=== PATIENT | male | born 1935 | race Caucasian/White ===

== ENCOUNTER → 2017-03-26 | Outpatient (CLI) | payer MEDICARE, OTHER ==
[~2017-03-26] MED LIST: ALB6.7R INH; ALBU2.5V36 INH; ALBUDR INH; ALL300 PO; ALLO-119 PO; ALLO100T70 PO; ALLOPURINOL; AMOX-559 PO; ASP325 PO; ASPI-1471 PO; ASPI-757 PO; ASPI81TA94 PO; ASTELIN; AUG875 PO; CALC1TAB32 PO; CEP500 PO; CHOLESTEROL MED; COLE1TAB6 PO; DARI15TA5 PO; DULERAPT INH; ESOM40CA42 PO; EZE10 PO; EZET10TA41 PO; HYOS-50 SL; IBU600 PO; IMIPRAM PO; LEV500P IV; METO25TA23 PO; METO25TA91 PO; MON10 PO; NIAC100040 PO; PANT40SU3 PO; PANT40TA65 PO; PER PO; PNEU0.5D3 IM; ROS10 PO; SINGULAIR; TAM4 PO; TOLT4CAP13 PO; ZOL5 PO; [UNRECOGNIZED DRUG - CODE] IH; [UNRECOGNIZED DRUG - CODE] PO; [UNRECOGNIZED DRUG - CODE] PO
[2017-03-26 12:09] LABS: PLATELET COUNT, AUTOMATED 220 K/uL (150-450)
== END ==
LOC: LAB 11:44
PROVIDERS: ATTEND Internal Medicine
DX: I10 Essential (primary) hypertension (principal); I25.10 Atherosclerotic heart disease of native coronary artery without angina pectoris; E78.5 Hyperlipidemia, unspecified; C61 Malignant neoplasm of prostate
CPT/HCPCS: 36415; 81001; 82040; 82247; 82310; 82374; 82435; 82565; 82947; 84075; 84132; 84153; 84155; 84295; 84443; 84450; 84460; 84520; 84550; 85025

== ENCOUNTER 2017-11-01 09:39 | Inpatient (IN) | payer MEDICARE, OTHER ==
[2017-11-01] MEDS ORDERED: AMOX-559 PO (09:46)
--- NOTE | 2017-11-01 09:47 | ER Report ---
History and Physical Time Seen By : 09:47 HPI/ROS CHIEF COMPLAINT: worsening dog bite infection HISTORY OF PRESENT ILLNESS: This is an 82 year old male. He had a dog bite 2 days ago. Started on Augmentin. Despite this, he has had worsening pain and redness and swelling. He presented to urgent care yesterday and had a dose of IV Ceftriaxone. Despite this, swelling and redness have worsened. This is on the dorsum of the hand. Family reports some purulent drainage. Redness now further into hand and onto the fingers and extending to distal forearm now with some wrapping around to ventral wrist area as well. Pain worsens with movement of the hand and wrist. REVIEW OF SYSTEMS: Constitutional: No fever or chills. Cardiovascular: No chest pain. Respiratory: No cough. No shortness of breath. Gastrointestinal: No abdominal pain. No nausea or vomiting. Musculoskeletal: No other musculoskeletal pain. Skin: As above. Neurological: No numbness. No weakness. Allergies: Coded Allergies: Ywebqkq-Ljr-Abo Reductase Inhibitor (Verified Allergy, Mild, 11/01/17) bacitracin (Verified Allergy, Unknown, 11/01/17) ciprofloxacin (Verified Allergy, Unknown, RASH, 11/01/17) iodine (Verified Allergy, Unknown, 11/01/17) neomycin (Verified Allergy, Unknown, 11/01/17) polymyxin B (Verified Allergy, Unknown, 11/01/17) Home Meds Active Scripts Allopurinol (ZYLOPRIM) 300 Mg Tablet, 300 MG PO QDAY, #90 TAB 4 Refills Prov:JOANNA PACK MD 03/28/17 Ezetimibe (ZETIA) 10 Mg Tablet, 10 MG PO QDAY, #90 TAB 4 Refills Prov:JOANNA PACK MD 03/26/17 Metoprolol Succinate (TOPROL XL) 25 Mg Tab.er.24h, 1 TAB PO QDAY, #90 TAB 4 Refills Prov:JOANNA PACK MD 03/26/17 Pantoprazole Sodium (PANTOPRAZOLE SODIUM) 40 Mg Tablet.dr, 40 MG PO QDAY, #90 TAB.SR 4 Refills Prov:JOANNA PACK MD 03/26/17 Rosuvastatin Calcium (CRESTOR) 10 Mg Tab, 10 MG PO QDAY, #90 TAB 4 Refills Prov:JOANNA PACK MD 03/26/17 Reported Medications Amoxicillin/Pot Clav 875-125 Mg Tab (AUGMENTIN 875-125 TABLET) 1 Each Tablet, 1 TAB PO Q12H, TAB 11/01/17 Aspirin (ASPIRIN) 81 Mg Tab.chew, 81 MG PO QDAY, TAB.CHEW 03/26/17 Discontinued Reported Medications Calcium Carb & Cit/Vitamin D3 (CALCIUM + D3 ER TABLET) Unknown Strength Tablet.er, PO DAILY 10/16/16 Reviewed Nurses Notes: Yes Hx Smoking: Yes Smoking Status: Former Smoker Exposure to Second Hand Smoke?: No Hx Alcohol Use: Yes Constitutional Vital Sign - Last 24 Hours 11/01/17 11/01/17 11/01/17 11/01/17 09:44 10:00 10:31 11:00 Temp 97.5 Pulse 95 94 Resp 18 B/P (MAP) 149/88 138/82 (100) 122/80 (94) 135/90 (105) Pulse Ox 93 89 O2 Delivery Room Air 11/01/17 11:30 B/P (MAP) 144/86 (105) Physical Exam General Appearance: Alert, no acute distress. Respiratory: Chest is non tender, lungs are clear to auscultation. Cardiac: regular rate and rhythm Musculoskeletal: Extremities have full range of motion, but tender with moving hand/wrist/fingers. No deformities, but has swelling. Skin: Redness and warmth. No purulent drainage. DIFFERENTIAL DIAGNOSIS: After history and physical exam differential diagnosis was considered for worsening cellulitis of the left hand from dog bite despite oral Augmenting and addition of a dose of Rocephin yesterday. Medical Decision Making Data Points Result Diagram: 11/01/17 1020 11/01/17 1020 Laboratory Hematology Test 11/01/17 10:20 Red Blood Count 4.67 M/uL (4.00-5.60) Mean Corpuscular Volume 102.0 fL (80.0-96.0) Mean Corpuscular Hemoglobin 35.0 pg (26.0-33.0) Mean Corpuscular Hemoglobin Concent 34.3 g/dL (32.0-36.0) Red Cell Distribution Width 13.9 % (11.5-14.5) Mean Platelet Volume 9.0 fL (7.2-11.1) Neutrophils (%) (Auto) 73.6 % (39.4-72.5) Lymphocytes (%) (Auto) 18.6 % (17.6-49.6) Monocytes (%) (Auto) 6.5 % (4.1-12.4) Eosinophils (%) (Auto) 0.3 % (0.4-6.7) Basophils (%) (Auto) 1.0 % (0.3-1.4) Nucleated RBC Relative Count (auto) 0.0 /100WBC Neutrophils # (Auto) 6.4 K/uL (2.0-7.4) Lymphocytes # (Auto) 1.6 K/uL (1.3-3.6) Monocytes # (Auto) 0.6 K/uL (0.3-1.0) Eosinophils # (Auto) 0.0 K/uL (0.0-0.5) Basophils # (Auto) 0.1 K/uL (0.0-0.1) Nucleated RBC Absolute Count (auto) 0.00 K/uL Erythrocyte Sedimentation Rate 25 mm/HOUR (0-20) Sodium Level 137 mmol/L (137-145) Potassium Level 4.0 mmol/L (3.5-5.0) Chloride Level 104 mmol/L (98-107) Carbon Dioxide Level 25 mmol/L (22-30) Blood Urea Nitrogen 12 mg/dl (9-21) Creatinine 0.70 mg/dl (0.66-1.25) Glomerular Filtration Rate Calc > 60.0 Random Glucose 127 mg/dl (75-110) Calcium Level 9.2 mg/dl (8.4-10.2) Total Bilirubin 1.0 mg/dl (0.2-1.3) Aspartate Amino Transf (AST/SGOT) 22 U/L (0-35) Alanine Aminotransferase (ALT/SGPT) 27 U/L (0-56) Alkaline Phosphatase 38 U/L (0-126) C-Reactive Protein 4.4 mg/dl (<1.0) Total Protein 7.3 g/dl (6.3-8.2) Albumin 4.2 g/dl (3.5-5.0) Chemistry Test 11/01/17 10:20 White Blood Count 8.7 k/uL (4.5-11.0) Red Blood Count 4.67 M/uL (4.00-5.60) Hemoglobin 16.3 g/dL (14.0-18.0) Hematocrit 47.6 % (42.0-52.0) Mean Corpuscular Volume 102.0 fL (80.0-96.0) Mean Corpuscular Hemoglobin 35.0 pg (26.0-33.0) Mean Corpuscular Hemoglobin Concent 34.3 g/dL (32.0-36.0) Red Cell Distribution Width 13.9 % (11.5-14.5) Platelet Count 177 K/uL (150-450) Mean Platelet Volume 9.0 fL (7.2-11.1) Neutrophils (%) (Auto) 73.6 % (39.4-72.5) Lymphocytes (%) (Auto) 18.6 % (17.6-49.6) Monocytes (%) (Auto) 6.5 % (4.1-12.4) Eosinophils (%) (Auto) 0.3 % (0.4-6.7) Basophils (%) (Auto) 1.0 % (0.3-1.4) Nucleated RBC Relative Count (auto) 0.0 /100WBC Neutrophils # (Auto) 6.4 K/uL (2.0-7.4) Lymphocytes # (Auto) 1.6 K/uL (1.3-3.6) Monocytes # (Auto) 0.6 K/uL (0.3-1.0) Eosinophils # (Auto) 0.0 K/uL (0.0-0.5) Basophils # (Auto) 0.1 K/uL (0.0-0.1) Nucleated RBC Absolute Count (auto) 0.00 K/uL Erythrocyte Sedimentation Rate 25 mm/HOUR (0-20) Glomerular Filtration Rate Calc > 60.0 Calcium Level 9.2 mg/dl (8.4-10.2) Total Bilirubin 1.0 mg/dl (0.2-1.3) Aspartate Amino Transf (AST/SGOT) 22 U/L (0-35) Alanine Aminotransferase (ALT/SGPT) 27 U/L (0-56) Alkaline Phosphatase 38 U/L (0-126) C-Reactive Protein 4.4 mg/dl (<1.0) Total Protein 7.3 g/dl (6.3-8.2) Albumin 4.2 g/dl (3.5-5.0) ED Course/Re-evaluation Clinical Indication for ER IV: IV Access ED Course Discussed with Dr. Caraballo. White count negative, but ESR and CRP elevated. Will start Zosyn and admit to medical for IV antibiotics. Decision to Disposition Date: Nov 01, 2017 Decision to Disposition Time: 11:24 Depart Departure Latest Vital Signs Vital Signs Date Time Temp Pulse Resp B/P (MAP) Pulse Ox O2 Delivery O2 Flow Rate FiO2 11/01/17 11:30 144/86 (105) 11/01/17 10:00 94 89 11/01/17 09:44 97.5 18 Room Air Impression: Primary Impression: Cellulitis Additional Impression: Dog bite of hand Condition: Condition Unchanged Disposition: Admitted from ER Problem Qualifiers Primary Impression: Cellulitis Site of cellulitis: extremity Site of cellulitis of extremity: upper extremity Laterality: left Qualified Codes: L03.114 - Cellulitis of left upper limb Additional Impression: Dog bite of hand Encounter type: initial encounter Laterality: left Qualified Codes: S6 1.452A - Open bite of left hand, initial encounter; W54.0XXA - Bitten by dog, initial encounter FREDDIE TOLLIVER MD Nov 01, 2017 09:47
[2017-11-01 10:47] LABS: PLATELET COUNT, AUTOMATED 177 K/uL (150-450)
[2017-11-01] MEDS ORDERED: PIPERACILLIN/TAZO*3.375GM VIAL 3.375 GM in NS(*) 0.9% 100 ML ADDVANT BAG 100 ML IVPB ONE (11:50)
[2017-11-01 12:08] VITALS: BP 125/92
[2017-11-01] MEDS ORDERED: ACETAMINOPHEN 500 MG TAB PO PRN (12:45)
[2017-11-01] MEDS ORDERED: INFLUENZA VIRUS VAC 0.5 ML SYR IM ONLY ONE (12:45)
--- NOTE | 2017-11-01 12:54 | History & Physical ---
History of Present Illness Chief Complaint Hand pain and swelling History of Present Illness This patient presented to the emergency room complaining of pain and swelling in the left hand. His symptoms started after a dog bite several days ago. He has been on Augmentin, but not improving. History Problems: (1) Benign hypertension (2) Personal history of pulmonary embolism (3) CAD (coronary artery disease) (4) Left bundle branch block Status: Chronic (5) Hyperlipidemia (6) Prostate cancer (7) Pacemaker Home Meds Active Scripts Allopurinol (ZYLOPRIM) 300 Mg Tablet, 300 MG PO QDAY, #90 TAB 4 Refills Prov:JOANNA PACK MD 03/28/17 Ezetimibe (ZETIA) 10 Mg Tablet, 10 MG PO QDAY, #90 TAB 4 Refills Prov:JOANNA PACK MD 03/26/17 Metoprolol Succinate (TOPROL XL) 25 Mg Tab.er.24h, 1 TAB PO QDAY, #90 TAB 4 Refills Prov:JOANNA PACK MD 03/26/17 Pantoprazole Sodium (PANTOPRAZOLE SODIUM) 40 Mg Tablet.dr, 40 MG PO QDAY, #90 TAB.SR 4 Refills Prov:JOANNA PACK MD 03/26/17 Rosuvastatin Calcium (CRESTOR) 10 Mg Tab, 10 MG PO QDAY, #90 TAB 4 Refills Prov:JOANNA PACK MD 03/26/17 Reported Medications Amoxicillin/Pot Clav 875-125 Mg Tab (AUGMENTIN 875-125 TABLET) 1 Each Tablet, 1 TAB PO Q12H, TAB 11/01/17 Aspirin (ASPIRIN) 81 Mg Tab.chew, 81 MG PO QDAY, TAB.CHEW 03/26/17 Discontinued Reported Medications Calcium Carb & Cit/Vitamin D3 (CALCIUM + D3 ER TABLET) Unknown Strength Tablet.er, PO DAILY 10/16/16 Allergies: Coded Allergies: Tbijjww-Dog-Tjm Reductase Inhibitor (Verified Allergy, Mild, 11/01/17) bacitracin (Verified Allergy, Unknown, 11/01/17) ciprofloxacin (Verified Allergy, Unknown, RASH, 11/01/17) iodine (Verified Allergy, Unknown, 11/01/17) neomycin (Verified Allergy, Unknown, 11/01/17) polymyxin B (Verified Allergy, Unknown, 11/01/17) Hx Smoking: Yes Smoking Status: Former Smoker Exposure to Second Hand Smoke?: No Caffeine Intake: Tea, Soda Caffeine/Cups Per Day: 4 Hx Alcohol Use: Yes Social Drug Use: Never Review of Systems All Systems Reviewed/Normal: Yes, Except as Noted Musculoskeletal: Pain Exam Vital Signs Vital Signs Date Time Temp Pulse Resp B/P (MAP) Pulse Ox O2 Delivery O2 Flow Rate FiO2 11/01/17 12:08 98.1 80 16 125/92 (103) 92 Room Air Neuro: No Gross deficits Eyes: PERRLA Cardiovascular: Regular Rate and Rhythm Respiratory: Clear to Auscultation GI: Abd Soft and Non-Tender Integumentary: Other (Left hand with obvious swelling. Erythema around dorsum of hand. Bite wound on dorsum of hand.) Medical Decision Making Data Points Result Diagram: 11/01/17 1020 11/01/17 1020 Item Value Date Time C-Reactive Protein 4.4 mg/dl H 11/01/17 1020 Assessment and Plan Problems: (1) Cellulitis Status: Acute Assessment & Plan: He has been on oral Augmentin with no improvement. We have placed him on empiric treatment with Zosyn. A repeat CRP has been ordered for the morning. (2) Dog bite of hand Status: Acute Assessment & Plan: As above. (3) CAD (coronary artery disease) Assessment & Plan: He is on chronic treatment with aspirin and Crestor. (4) Benign hypertension Assessment & Plan: He is on chronic treatment with metoprolol. Venous Thromboembolism Antithrombotics Is Pt On Any Antithrombotics?: Yes Exam Sepsis Risk: No Definite Risk Problem Qualifiers (1) Cellulitis: Site of cellulitis: extremity Site of cellulitis of extremity: upper extremity Laterality: left Qualified Codes: L03.114 - Cellulitis of left upper limb (2) Dog bite of hand: Encounter type: initial encounter Laterality: left Qualified Codes: S61.452A - Open bite of left hand, initial encounter; W54.0XXA - Bitten by dog, initial encounter MOHSENVIKA MARTIN DO Nov 01, 2017 12:54
[2017-11-01] MEDS ORDERED: NS(*) 0.9% 250 ML BAG 250 ML ONE (18:18)
[2017-11-01] MEDS: PIPERACILLIN/TAZO*3.375GM VIAL 3.375 GM in NS(*) 0.9% 100 ML ADDVANT BAG 100 ML IVPB SCH (18:18)
[2017-11-01 20:11] VITALS: BP 136/87
[2017-11-01] MEDS ORDERED: ZOLPIDEM TARTRATE 10 MG TAB PO PRN (21:00)
[2017-11-02] MEDS: PIPERACILLIN/TAZO*3.375GM VIAL 3.375 GM in NS(*) 0.9% 100 ML ADDVANT BAG 100 ML IVPB SCH ×3 (00:19→11:21)
[2017-11-02 05:49] VITALS: BP 124/83
[2017-11-02 06:47] VITALS: BP 123/77
[2017-11-02] MEDS ORDERED: ASPIRIN 81 MG ENTERIC COATED PO SCH (09:00)
[2017-11-02] MEDS ORDERED: PANTOPRAZOLE SOD 40 MG TABEC PO SCH (09:00)
[2017-11-02] MEDS ORDERED: METOPROLOL SUCC XL 25 MG TABCR PO SCH (09:00)
[2017-11-02] MEDS ORDERED: ALLOPURINOL 300 MG TAB PO SCH (09:00)
[2017-11-02] MEDS ORDERED: ENOXAPARIN 40 MG/0.4ML SYR SC SCH (09:00)
--- NOTE | 2017-11-02 11:03 | Hospitalist Depart ---
Discharge Summary Reason for Hosp/Final Diag: (1) Cellulitis Status: Acute Hospital Course & Plan: He has been on oral Augmentin with no improvement, believe infection slow to respond to PO medication, not failure of therapy. We placed him on empiric treatment with Zosyn, rapidly improved. A repeat CRP was decreased. With infection under control after IV Abx will d/c to finish therapy with PO Augmentin. Recommend follow up with PCP this week. If not improved would image to evaluate for retained foreign body, as no imaging was obtained at urgent care. (2) Dog bite of hand Status: Acute Hospital Course & Plan: As above. (3) CAD (coronary artery disease) Hospital Course & Plan: He is on chronic treatment with aspirin and Crestor. (4) Benign hypertension Hospital Course & Plan: He is on chronic treatment with metoprolol. Departure Weight (Pounds): 174 Weight (Ounces): 8.0 Result Diagram: 11/01/17 1020 11/01/17 1020 Condition: Improved Discharge: Home, Self Care Discharge Instructions Home Meds Active Scripts Allopurinol (ZYLOPRIM) 300 Mg Tablet, 300 MG PO QDAY, #90 TAB 4 Refills Prov:JOANNA PACK MD 03/28/17 Ezetimibe (ZETIA) 10 Mg Tablet, 10 MG PO QDAY, #90 TAB 4 Refills Prov:JOANNA PACK MD 03/26/17 Metoprolol Succinate (TOPROL XL) 25 Mg Tab.er.24h, 1 TAB PO QDAY, #90 TAB 4 Refills Prov:JOANNA PACK MD 03/26/17 Pantoprazole Sodium (PANTOPRAZOLE SODIUM) 40 Mg Tablet.dr, 40 MG PO QDAY, #90 TAB.SR 4 Refills Prov:JOANNA PACK MD 03/26/17 Rosuvastatin Calcium (CRESTOR) 10 Mg Tab, 10 MG PO QDAY, #90 TAB 4 Refills Prov:JOANNA PACK MD 03/26/17 Reported Medications Amoxicillin/Pot Clav 875-125 Mg Tab (AUGMENTIN 875-125 TABLET) 1 Each Tablet, 1 TAB PO Q12H, TAB 11/01/17 Aspirin (ASPIRIN) 81 Mg Tab.chew, 81 MG PO QDAY, TAB.CHEW 1/24/18 Discontinued Reported Medications Calcium Carb & Cit/Vitamin D3 (CALCIUM + D3 ER TABLET) Unknown Strength Tablet.er, PO DAILY 10/16/16 Diet: Regular Copies to: JOANNA PACK MD ; Venous Thromboembolism Antithrombotics Is Pt On Any Antithrombotics?: Yes Problem Qualifiers (1) Cellulitis: Site of cellulitis: extremity Site of cellulitis of extremity: upper extremity Laterality: left Qualified Codes: L03.114 - Cellulitis of left upper limb (2) Dog bite of hand: Encounter type: initial encounter Laterality: left Qualified Codes: S61.452A - Open bite of left hand, initial encounter; W54.0XXA - Bitten by dog, initial encounter ANASTASIA RODRIGUEZ DO Nov 02, 2017 11:03
== END 2017-11-02 12:58 | disposition home or self-care (01) | DRG 603 ==
LOC: ER 09:46 → MED 11:41
PROVIDERS: ADMIT Family Medicine; ATTEND Family Medicine
DX: L03.114 Cellulitis of left upper limb (principal); I25.10 Atherosclerotic heart disease of native coronary artery without angina pectoris; I10 Essential (primary) hypertension; I44.7 Left bundle-branch block, unspecified; Z95.0 Presence of cardiac pacemaker; Z86.711 Personal history of pulmonary embolism; E78.5 Hyperlipidemia, unspecified; W54.0XXA Bitten by dog, initial encounter; Z88.1 Allergy status to other antibiotic agents; Z88.8 Allergy status to other drugs, medicaments and biological substances; Z87.891 Personal history of nicotine dependence; Z85.46 Personal history of malignant neoplasm of prostate
CPT/HCPCS: 36415; 82040; 82247; 82310; 82374; 82435; 82565; 82947; 84075; 84132; 84155; 84295; 84450; 84460; 84520; 85025; 85651; 86140; 87040; 96374; 99284; J1650; J2543; J3490; J7050

== ENCOUNTER → 2017-11-06 | Outpatient (CLI) | payer MEDICARE, OTHER ==
[2017-11-06 11:56] LABS: PLATELET COUNT, AUTOMATED 231 K/uL (150-450)
--- NOTE | 2017-11-06 12:58 | RADIOLOGY IMAGING REPORT ---
FACILITY: [facility] PATIENT NAME: Jasmeet Kruger : 1935 MR: [id number] V: [id number] EXAM DATE: ORDERING PHYSICIAN: JOANNA PACK TECHNOLOGIST: Location: [facility] Patient: Jasmeet Kruger : 1935 Visit/Account:[id number] Date of Sevice: 11/06/2017 Technique: HAND COMPLETE LEFT HISTORY: CELLULITIS Comparison studies: None FINDINGS: There is no acute fracture. No cortical destructive process. Degenerative changes are not ed within the hand most conspicuous at the first CMC joint and the first interphalangeal joint. Ther e is a small ossific density anterior to the carpal row which may represent a loose body or sequela o f previous injury. Soft tissue swelling surrounds the hand. IMPRESSION: 1. No acute osseous process. 2. Degenerative changes as described above. Report Dictated By: Nigel France DO at 11/06/2017 12:49 PM Report E-Signed By: Nigel France DO at 11/06/2017 12:54 PM WSN:[id number]
== END ==
LOC: LAB 11:37
PROVIDERS: ATTEND Internal Medicine
DX: M25.442 Effusion, left hand (principal); M19.042 Primary osteoarthritis, left hand; L03.90 Cellulitis, unspecified
CPT/HCPCS: 36415; 82040; 82247; 82310; 82374; 82435; 82565; 82947; 84075; 84132; 84155; 84295; 84450; 84460; 84520; 85025; 85651; 86140

== ENCOUNTER → 2017-12-08 | Outpatient (CLI) | payer MEDICARE, OTHER ==
[2017-12-08 09:14] LABS: LDL CHOLESTEROL 71 mg/dl
== END ==
LOC: LAB 08:21
PROVIDERS: ATTEND Internal Medicine
DX: I49.8 Other specified cardiac arrhythmias (principal); Z95.0 Presence of cardiac pacemaker; I47.2 Ventricular tachycardia; I44.1 Atrioventricular block, second degree; I25.5 Ischemic cardiomyopathy; E78.00 Pure hypercholesterolemia, unspecified; I25.119 Atherosclerotic heart disease of native coronary artery with unspecified angina pectoris
CPT/HCPCS: 36415; 82040; 82247; 82310; 82374; 82435; 82465; 82565; 82947; 83718; 84075; 84132; 84155; 84295; 84450; 84460; 84478; 84520

== ENCOUNTER 2018-10-14 00:46 | Emergency (ER) | payer MEDICARE, OTHER ==
[~2018-10-14 00:46] MED LIST changes: -ROS10 PO; +ROSU10TA PO
--- NOTE | 2018-10-14 00:56 | ER Report ---
History and Physical Time Seen By MD: 00:51 Hx. of Stated Complaint: PATIENT STATES HAVING TIREDNESS, DIZZINESS, PAIN IN CHEST, "FEELS LIKE INDESTION". PATIENT FEELING SHORT OF BREATH. HPI/ROS CHIEF COMPLAINT: chest pain HISTORY OF PRESENT ILLNESS: This is an 83 year old male. He has had some chest pressure tonight. Feels like indigestion. Has a history of CAD, OH and stents as well as pacemaker and cardiomyopathy. Had [place] today and was feeling a little out of breath and dizziness at times. Feels better with getting up and moving around. Dizziness is not a vertigo or near syncope, but a nonspecific feeling of being off balance. Denies fevers or chills. No cough or shortness of breath right now. Has had some reflux. No abdominal pain. Normal bowels. No trouble with urination. Allergies: Coded Allergies: Xzmzwcm-Pot-Kyq Reductase Inhibitor (Verified Allergy, Mild, 10/14/18) bacitracin (Verified Allergy, Unknown, 10/14/18) ciprofloxacin (Verified Allergy, Unknown, RASH, 10/14/18) iodine (Verified Allergy, Unknown, 10/14/18) neomycin (Verified Allergy, Unknown, 10/14/18) polymyxin B (Verified Allergy, Unknown, 10/14/18) Home Meds Active Scripts Pantoprazole Sodium (PANTOPRAZOLE SODIUM) 40 Mg Tablet.dr, 40 MG PO QDAY, #30 TAB.SR 0 Refills Prov:JOANNA PACK MD 10/13/18 Allopurinol (ZYLOPRIM) 300 Mg Tablet, 300 MG PO QDAY, #90 TAB 4 Refills Prov:JOANNA PACK MD 03/28/17 Ezetimibe (ZETIA) 10 Mg Tablet, 10 MG PO QDAY, #90 TAB 4 Refills Prov:JOANNA PACK MD 03/26/17 Metoprolol Succinate (TOPROL XL) 25 Mg Tab.er.24h, 1 TAB PO QDAY, #90 TAB 4 Refills Prov:JOANNA PACK MD 03/26/17 Rosuvastatin Calcium (CRESTOR) 10 Mg Tab, 10 MG PO QDAY, #90 TAB 4 Refills Prov:JOANNA PACK MD 03/26/17 Reported Medications Aspirin (ASPIRIN) 81 Mg Tab.chew, 81 MG PO QDAY, TAB.CHEW 03/26/17 Reviewed Nurses Notes: Yes Hx Smoking: Yes Smoking Status: Former Smoker Exposure to Second Hand Smoke?: No Hx Alcohol Use: Yes Constitutional Vital Sign - Last 24 Hours 10/14/18 10/14/18 10/14/18 10/14/18 00:49 01:00 01:01 01:16 Temp 98.7 Pulse 66 65 65 Resp 20 21 14 B/P (MAP) 149/86 141/85 (103) Pulse Ox 91 91 89 O2 Delivery Room Air 10/14/18 10/14/18 10/14/18 10/14/18 01:30 01:31 01:46 01:51 Pulse 62 62 60 Resp 16 9 15 B/P (MAP) 123/71 (88) Pulse Ox 87 88 94 10/14/18 10/14/18 10/14/18 10/14/18 01:51 02:00 02:21 02:30 Pulse 60 Resp 14 B/P (MAP) 118/75 (89) 121/72 (88) Pulse Ox 93 O2 Flow Rate 2.0 10/14/18 10/14/18 10/14/18 10/14/18 02:36 02:51 03:00 03:05 Pulse 60 60 60 Resp 13 16 16 B/P (MAP) 106/53 (70) Pulse Ox 94 90 92 10/14/18 10/14/18 10/14/18 10/14/18 03:20 03:30 03:35 03:50 Pulse 60 60 60 Resp 13 14 13 B/P (MAP) 134/80 (98) Pulse Ox 94 95 94 10/14/18 10/14/18 04:00 04:05 Pulse 58 Resp 12 B/P (MAP) 127/75 (92) Pulse Ox 92 Physical Exam General Appearance: The patient is alert. No acute distress. Eyes: Pupils are equal, round. No pallor, injection or icterus. ENT: Mucous membranes are moist. Normal oral mucosa. Posterior oropharynx is normal. Neck: Supple and non tender. Respiratory: Lungs are clear to auscultation. Cardiovascular: Regular rate and rhythm. No murmurs, gallops or rubs. Normal capillary refill. No edema. Normal peripheral perfusion. Gastrointestinal: Abdomen is soft and non tender. Nondistended. Normal active bowel sounds. No costovertebral angle tenderness with percussion. Neurological: Alert and oriented x3. No focal neurologic deficits Skin: Warm and dry. Musculoskeletal: Extremities are nontender. No pain in the back/spine. DIFFERENTIAL DIAGNOSIS: After history and physical exam, differential diagnosis was considered for chest pain including but not limited to myocardial ischemia, pericarditis pulmonary embolus, chest wall pain, pleural inflammation and pulmonary infectious causes. Medical Decision Making Data Points Result Diagram: 10/14/180 10/14/180 Laboratory Hematology Test 10/14/18 00:50 White Blood Count 7.6 k/uL (4.5-11.0) Red Blood Count 4.96 M/uL (4.00-5.60) Hemoglobin 17.4 g/dL (14.0-18.0) Hematocrit 49.9 % (42.0-52.0) Mean Corpuscular Volume 100.4 fL (80.0-96.0) H Mean Corpuscular Hemoglobin 35.0 pg (26.0-33.0) H Mean Corpuscular Hemoglobin Concent 34.9 g/dL (32.0-36.0) Red Cell Distribution Width 14.6 % (11.5-14.5) H Platelet Count 199 K/uL (150-450) Mean Platelet Volume 8.6 fL (7.2-11.1) Neutrophils (%) (Auto) 46.0 % (39.4-72.5) Lymphocytes (%) (Auto) 41.4 % (17.6-49.6) Monocytes (%) (Auto) 9.6 % (4.1-12.4) Eosinophils (%) (Auto) 1.6 % (0.4-6.7) Basophils (%) (Auto) 1.4 % (0.3-1.4) Nucleated RBC Relative Count (auto) 0.0 /100WBC Neutrophils # (Auto) 3.5 K/uL (2.0-7.4) Lymphocytes # (Auto) 3.1 K/uL (1.3-3.6) Monocytes # (Auto) 0.7 K/uL (0.3-1.0) Eosinophils # (Auto) 0.1 K/uL (0.0-0.5) Basophils # (Auto) 0.1 K/uL (0.0-0.1) Nucleated RBC Absolute Count (auto) 0.00 K/uL Chemistry Test 10/14/18 00:50 10/14/18 04:00 Sodium Level 134 mmol/L (137-145) Potassium Level 3.9 mmol/L (3.5-5.0) Chloride Level 96 mmol/L (98-107) Carbon Dioxide Level 25 mmol/L (22-30) Blood Urea Nitrogen 12 mg/dl (9-21) Creatinine 0.80 mg/dl (0.66-1.25) Glomerular Filtration Rate Calc > 60.0 Random Glucose 95 mg/dl (75-110) Calcium Level 9.6 mg/dl (8.4-10.2) Total Bilirubin 0.6 mg/dl (0.2-1.3) Aspartate Amino Transf (AST/SGOT) 37 U/L (0-35) Alanine Aminotransferase (ALT/SGPT) 38 U/L (0-56) Alkaline Phosphatase 56 U/L (0-126) B-Type Natriuretic Peptide 81 pg/ml (0-100) Total Protein 7.7 g/dl (6.3-8.2) Albumin 4.3 g/dl (3.5-5.0) Troponin I < 0.012 ng/ml EKG/Imaging EKG Interpretation 12 lead EKG: Rhythm: Sinus rhythm with first-degree AV block, rate 63 Swain: Left axis deviation QRS: Left bundle branch block ST segments: Unchanged with comparison with prior EKGs. Imaging CHEST SINGLE AP COMPARISONS: 2 view chest dated October 15, 2016 ADDITIONAL PERTINENT HISTORY: Chest pain FINDINGS: Cardiomediastinal silhouette: Dual lead left-sided cardiac pacemaker in good position. Pulmonary vasculature: Negative. Lung harris: Negative. Pleural spaces: Negative. Osseous structures: Negative. Surrounding soft tissues: Negative. IMPRESSION: No evidence of acute cardiopulmonary disease. Report Dictated By: Petey Muro MD at 10/14/2018 1:30 AM ED Course/Re-evaluation Clinical Indication for ER IV: Hydration, IV Access ED Course Initial labs including Troponin negative. Reviewed these findings with the patient. Kept for 3 hour repeat troponin which was negative. Has history of heart problems, so still needs to follow-up with cardiology and regular doctor. Decision to Disposition Date: Oct 14, 2018 Decision to Disposition Time: 04:53 Depart Departure Latest Vital Signs Vital Signs Date Time Temp Pulse Resp B/P (MAP) Pulse Ox O2 Delivery O2 Flow Rate FiO2 10/14/18 04:05 58 12 92 10/14/18 04:00 127/75 (92) 10/14/18 01:51 2.0 10/14/18 00:49 98.7 Room Air Impression: Primary Impression: Chest pain Condition: Improved Disposition: HOME OR SELF-CARE Referrals: JOANNA PACK MD (PCP) Patient Instructions: Chest Pain (ED) Additional Instructions: We do not know why you had chest pain tonight. Your cardiac enzymes tonight were normal, and it does not appear that the pain was caused by a heart attack. Chest x-ray and other labs were also negative. EKG is unchanged. We recommend follow-up with your regular doctor and with your linux kernel engineer for further evaluation. This could have been in part due to gastrointestinal problems such as indigestion or reflux and we recommend restarting your antiacid medicines. Problem Qualifiers Primary Impression: Chest pain Chest pain type: unspecified Qualified Codes: R07.9 - Chest pain, unspecified FREDDIE TOLLIVER MD Oct 14, 2018 00:56
[2018-10-14] MEDS ORDERED: PANTOPRAZOLE SOD 40 MG IV VIAL IVP ONE (01:10)
[2018-10-14] MEDS ORDERED: ASPIRIN 81 MG CHEW PO ONE (01:10)
--- NOTE | 2018-10-14 01:11 | EKG ---
FACILITY: [facility] PATIENT NAME: CHI GEE : [id number] MR: [id number] V: [id number] EXAM DATE: ORDERING PHYSICIAN: FREDDIE TOLLIVER TECHNOLOGIST: DANILO Test Reason : CP Blood Pressure : / mmHG Vent. Rate : 063 BPM Atrial Rate : 063 BPM P-R Int : 262 ms QRS Dur : 200 ms QT Int : 468 ms P-R-T Axes : 019 -51 025 degrees QTc Int : 478 ms Atrial sensing ventricular pacing When compared with ECG of 15-OCT-2016 19:46, QRS duration has increased It is unclear if the previous was ventricle paced Confirmed by JESSICA MEHTA ([id number]) on 10/14/2018 6:43:52 AM Referred By: SHAREE Confirmed By:JESSICA MEHTA
[2018-10-14 01:20] LABS: PLATELET COUNT, AUTOMATED 199 K/uL (150-450)
--- NOTE | 2018-10-14 01:40 | RADIOLOGY IMAGING REPORT ---
[place] [facility] [place] NAME: Jasmeet Kruger : 1935 MR: [id number] V: [id number] EXAM DATE: ORDERING PHYSICIAN: FREDDIE TOLLIVER TECHNOLOGIST: Location: [facility] [place] Patient: Jasmeet Kruger : 1935 Visit/Account:[id number] Date of Sevice: 10/14/2018 CHEST SINGLE AP COMPARISONS: 2 view chest dated October 15, 2016 ADDITIONAL PERTINENT HISTORY: Chest pain FINDINGS: Cardiomediastinal silhouette: Dual lead left-sided cardiac pacemaker in good position. Pulmonary vasculature: Negative. Lung harris: Negative. Pleural spaces: Negative. Osseous structures: Negative. Surrounding soft tissues: Negative. IMPRESSION: No evidence of acute cardiopulmonary disease. Report Dictated By: Petey Muro MD at 10/14/2018 1:30 AM Report E-Signed By: Petey Muro MD at 10/14/2018 1:31 AM WSN:[id number]
[2018-10-14 05:00] VITALS: BP 132/87
== END 2018-10-14 05:13 | disposition home or self-care (01) ==
LOC: ER 01:18
DX: R07.9 Chest pain, unspecified (principal)
CPT/HCPCS: 71045; 83880; 84484; 85025; 96374; 99284; A9270; C9113; 82040; 82247; 82310; 82374; 82435; 82565; 82947; 84075; 84132; 84155; 84295; 84450; 84460; 84520

== ENCOUNTER → 2018-10-16 | Outpatient (CLI) | payer MEDICARE, OTHER ==
[2018-10-16 08:43] LABS: PLATELET COUNT, AUTOMATED 198 K/uL (150-450)
[2018-10-16 09:33] LABS: LDL CHOLESTEROL 69 mg/dl
== END ==
LOC: LAB 08:21
PROVIDERS: ATTEND Internal Medicine
DX: E78.5 Hyperlipidemia, unspecified (principal); I10 Essential (primary) hypertension; I25.10 Atherosclerotic heart disease of native coronary artery without angina pectoris; I25.5 Ischemic cardiomyopathy; Z95.0 Presence of cardiac pacemaker; R06.00 Dyspnea, unspecified; R41.82 Altered mental status, unspecified
CPT/HCPCS: 36415; 81001; 82040; 82247; 82310; 82374; 82435; 82465; 82565; 82947; 83718; 83880; 84075; 84132; 84153; 84155; 84295; 84443; 84450; 84460; 84478; 84520; 85025